=== PATIENT | female | born 1985 | race Caucasian/White ===

== ENCOUNTER 2022-07-26 13:03 | Observation (INO) | payer MEDICAID ==
[~2022-07-26] VITALS: Ht 162.6 cm; Wt 78.0 kg
== END 2022-07-26 17:00 | disposition home or self-care (01) ==
LOC: SPU 13:03
PROVIDERS: ADMIT Obstetrics & Gynecology; ATTEND Obstetrics & Gynecology
DX: O36.8130 Decreased fetal movements, third trimester, not applicable or unspecified (principal); Z3A.37 37 weeks gestation of pregnancy
CPT/HCPCS: 59025; 76819; 81002; G0378

== ENCOUNTER 2022-07-31 19:19 | Observation (INO) | payer MEDICAID | END 2022-07-31 21:10 | disposition home or self-care (01) | LOC: SPU 19:19 | PROVIDERS: ADMIT Obstetrics & Gynecology; ATTEND Obstetrics & Gynecology | DX: O42.92 Full-term premature rupture of membranes, unspecified as to length of time between rupture and onset of labor (principal); O62.9 Abnormality of forces of labor, unspecified; Z3A.39 39 weeks gestation of pregnancy | CPT/HCPCS: G0378; G0379 ==

== ENCOUNTER 2022-08-01 20:40 | Inpatient (IN) | payer MEDICAID ==
[~2022-08-01] VITALS: Ht 162.6 cm; Wt 78.5 kg
[2022-08-01] MEDS ORDERED: AMPICILLIN SODIUM 2 GM in NS 100 ML IV ONE (21:45)
[2022-08-01] MEDS ORDERED: LR 1,000 ML IV ONE (21:45)
[2022-08-01] MEDS ORDERED: OXYTOCIN/0.9 % SODIUM CHLORIDE 1,000 ML IV SCH (21:45)
[2022-08-01] MEDS ORDERED: TERBUTALINE SULFATE 1 MG/ML VIAL SUBCUT ONE (21:45)
[2022-08-01] MEDS ORDERED: LR 1,000 ML IV SCH (21:45)
[2022-08-01] MEDS ORDERED: AMPICILLIN SODIUM 2 GM VIAL ONE (21:57)
[2022-08-01 22:42] LABS: BASOPHILS % (AUTO) 0.3 % (0.0-2.0); EOSINOPHILS % (AUTO) 0.3 % (0.0-4.0); HEMATOCRIT 39.3 % (36-48); HEMOGLOBIN 13.4 g/dL (12.0-16.0); LYMPHOCYTES # (AUTO) 1.6 K/uL (1.0-5.5); LYMPHOCYTES % (AUTO) 14.9 % (20.5-51.5); MEAN CORPUSCULAR HEMOGLOBIN 29 pg (27-31); MEAN CORPUSCULAR HGB CONC 34 % (32-36); MEAN CORPUSCULAR VOLUME 85 fL (79.0-98.0); MONOCYTES # (AUTO) 0.6 K/uL (0.0-1.0); MONOCYTES % (AUTO) 5.6 % (1.7-9.3); NEUTROPHILS # (AUTO) 8.5 K/uL (1.8-7.7); NEUTROPHILS % (AUTO) 78.9 % (40.0-70.0); PLATELET COUNT (AUTO) 271 K/uL (130-430); RED CELL DISTRIBUTION WIDTH 13.8 % (9.0-15.0); WHITE BLOOD COUNT (AUTO) 10.8 K/uL (4.8-10.8)
[2022-08-01] MEDS: NALBUPHINE HCL 10 MG/ML AMP IVP PRN (23:04)
[2022-08-02 00:24] VITALS: BP_SYST 129
[2022-08-02] MEDS: NALBUPHINE HCL 10 MG/ML AMP IVP PRN ×2 (00:52→03:07)
[2022-08-02] MEDS ORDERED: ROPIVACAINE HCL/PF 0.2% 200 ML ONE (04:07)
[2022-08-02] MEDS ORDERED: AMPICILLIN SODIUM 1 GM VIAL ONE (04:11)
[2022-08-02] MEDS: AMPICILLIN SODIUM 1 GM in NS 50 ML IV SCH ×2 (04:24→08:37)
[2022-08-02] MEDS ORDERED: FENTANYL CITRATE EP ONE ×2 (06:15)
[2022-08-02] MEDS ORDERED: ROPIVACAINE HCL EP ONE ×2 (06:15)
[2022-08-02] MEDS ORDERED: LIDOCAINE PF 1% 30ML(POUR BTL) INJ ONE (08:31)
[2022-08-02] MEDS ORDERED: LIGHT MINERAL OIL 10 ML VIAL MC ONE (08:31)
[2022-08-02] MEDS ORDERED: NALOXONE HCL 0.4 MG/ML AMP (NARCAN) ONE (08:31)
[2022-08-02] MEDS ORDERED: HYDROcodone/ACETAMIN 5-325 MG TAB (NORCO/ VICODIN) PO PRN (13:00)
[2022-08-02] MEDS ORDERED: WITCH HAZEL LEAF 1 MED.PAD MED.PAD TP PRN (13:00)
[2022-08-02] MEDS ORDERED: OXYTOCIN/0.9 % SODIUM CHLORIDE 1,000 ML IV ONE (13:00)
[2022-08-02] MEDS ORDERED: LANOLIN 7 GM OINT. TP PRN (13:00)
[2022-08-02] MEDS ORDERED: MEASLES,MUMPS&RUBELLA VACC/PF 12500 UNIT/0.5 ML VIAL SUBQ PRN (13:00)
[2022-08-02] MEDS ORDERED: DERMOPLAST SPRAY TP PRN (13:00)
[2022-08-02] MEDS ORDERED: OXYCODONE/ACETAMINOPHEN 5-325 TABLET PO PRN ×2 (13:00)
[2022-08-02] MEDS ORDERED: METHYLERGONOVINE MALEATE 0.2 MG TABLET PO PRN (13:00)
[2022-08-02] MEDS: IBUPROFEN 600 MG TABLET PO SCH (17:49)
[2022-08-03] MEDS: IBUPROFEN 600 MG TABLET PO SCH ×4 (00:18→18:02)
[2022-08-03 07:31] LABS: HEMATOCRIT 32.1 % (36-48); HEMOGLOBIN 10.8 g/dL (12.0-16.0)
[2022-08-03 08:06] LABS: RUBELLA AB, IgG 4.13 index (Immune >0.99)
[2022-08-03] MEDS ORDERED: DOCUSATE SODIUM 100 MG CAPSULE PO SCH (09:00)
[2022-08-03 14:06] LABS: HEPATITIS B SURFACE AG Negative (Negative)
== END 2022-08-03 19:15 | disposition home or self-care (01) | DRG 560 ==
LOC: SPU 20:40 → OBSVTOIN 20:40
PROVIDERS: ADMIT Obstetrics & Gynecology; ATTEND Obstetrics & Gynecology
PROC: 10D07Z6 Extraction of Products of Conception, Vacuum, Via Natural or Artificial Opening (ICD-10-PCS; principal; 2022-08-02)
PROC: 3E0R3BZ Introduction of Anesthetic Agent into Spinal Canal, Percutaneous Approach (ICD-10-PCS; 2022-08-02)
PROC: 00HU33Z Insertion of Infusion Device into Spinal Canal, Percutaneous Approach (ICD-10-PCS; 2022-08-02)
DX: O76 Abnormality in fetal heart rate and rhythm complicating labor and delivery (principal); Z37.0 Single live birth; R71.0 Precipitous drop in hematocrit; O69.81X0 Labor and delivery complicated by cord around neck, without compression, not applicable or unspecified; Z20.822 Contact with and (suspected) exposure to COVID-19; Z3A.38 38 weeks gestation of pregnancy
CPT/HCPCS: 36415; 81002; 85018; 85025; 86762; 86886; 86900; 86901; 87340; 94760; J0290; J2001; J2300; J2310; J2590